=== PATIENT | female | born 1970 | race Two or more races ===

== ENCOUNTER → 2024-07-23 | Outpatient (CLI) | payer OTHER, SELFPAY ==
--- NOTE | 2024-07-23 16:18 | XR_ITS ---
Examination: Cervical spine 3 views TECHNIQUE: AP lateral, and AP odontoid cervical spine 3 views Exam date 9: July 23, 2024, 1728 hours Comparison February 09, 2016 INDICATIONS: Status post neck surgery 2 weeks ago. FINDINGS: Status post cervical fusion C4-C6 with anatomic alignment No cervical fracture Advanced degenerative disc disease C6-C7 level Postop prevertebral soft tissue prominence, 20 mm at the C5 level IMPRESSION: Cervical fusion C4-C6 with anatomic alignment
== END | disposition home or self-care (01) ==
PROVIDERS: Referring Provider Orthopaedic Surgery Orthopaedic Surgery of the Spine; Visit Provider Orthopaedic Surgery Orthopaedic Surgery of the Spine
DX: M43.22 Fusion of spine, cervical region (principal)
CPT/HCPCS: 72040

== ENCOUNTER → 2024-09-17 | Outpatient (CLI) | payer OTHER, SELFPAY ==
--- NOTE | 2024-09-17 13:15 | XR_ITS ---
Examination: Cervical spine 3 views Technique one AP lateral coned AP odontoid cervical spine 3 views Date and time: September 17, 2024 1432 hours Comparison July 23, 2024 INDICATIONS: Cervical fusion July 12, 2024 followed by numbness in both arms. FINDINGS: Cervical fusion C4-C6 with satisfactory alignment Moderate to advanced degenerative disc disease at the C6-C7 level with posterior osteophyte formation No fracture IMPRESSION: Moderate to advanced degenerative disc disease C6-C7
== END | disposition home or self-care (01) ==
PROVIDERS: PCP Orthopaedic Surgery Orthopaedic Surgery of the Spine; Referring Provider Orthopaedic Surgery Orthopaedic Surgery of the Spine; Visit Provider Orthopaedic Surgery Orthopaedic Surgery of the Spine
DX: M50.323 Other cervical disc degeneration at C6-C7 level (principal); M43.22 Fusion of spine, cervical region; Z47.89 Encounter for other orthopedic aftercare
CPT/HCPCS: 72040

== ENCOUNTER 2025-04-27 21:18 | Emergency (ER) | payer MEDICAID, SELFPAY ==
[2025-04-27 21:20] VITALS: BMI 29.8
[2025-04-27 21:46] VITALS: BP 191/111; BP 205/120; PULSE 108; RESP 18; TEMP 37.5; O2SAT 99
--- NOTE | 2025-04-27 21:57 | XR_ITS ---
EXAMINATION: PA chest single view TECHNIQUE: Upright PA chest single view Date and time: April 27, 2025, 2154 hours INDICATIONS: Coughing beginning 1 week ago. FINDINGS: Normal heart size Lungs are clear. Intact osseous structures IMPRESSION: No active disease
[2025-04-27 22:10] VITALS: BP 191/111; PULSE 108
[2025-04-27] MEDS: ALBUTEROL/IPRATROPIUM (Duoneb) RT SOL 3 ML NEBU INH (22:15)
[2025-04-27 22:16] VITALS: PULSE 84; RESP 20; O2SAT 99
[2025-04-27 22:23] LABS: Basophils # (Auto) 0.0 Thou/mm3 (0.0-0.2); Basophils % (Auto) 1 % (0-2.5); Eosinophils # (Auto) 0.1 Thou/mm3 (0.0-0.5); Eosinophils % (Auto) 2 % (0-10); Hematocrit 38.8 % (36.0-46.0); Hemoglobin 13.8 g/dL (12.0-16.0); Immature Granulocytes Auto 0.02 Thou/mm3 (0.00-0.00); Lymphocytes # (Auto) 2.4 Thou/mm3 (1.0-4.8); Mean Corpuscular HGB Conc 35.6 g/dl (31.0-37.0); Mean Corpuscular Hemoglobin 29.4 pg (25.0-35.0); Mean Corpuscular Volume 83 fL (80-100); Monocytes # (Auto) 0.5 Thou/mm3 (0.0-0.8); Monocytes % (Auto) 9 % (0-12); Neutrophils # (Auto) 2.7 Thou/mm3 (1.8-7.7); Neutrophils % (Auto) 47 % (37-80); Nucleated Red Blood Cell # 0.00 Thou/mm3 (0.00-0.00); Nucleated Red Blood Cell % 0 /100 WBC (0); Platelet Count 145 Thou/mm3 (140-440); RDW Standard Deviation 36.4 fL (36.4-46.3); Red Blood Count 4.70 Miln/mm3 (4.00-5.20); White Blood Count 5.7 Thou/mm3 (3.6-11.0)
[2025-04-27 22:41] LABS: Alanine Aminotransferase 26 U/L (10-49); Albumin, Serum 4.5 gm/dL (3.5-5.0); Albumin/Globulin Ratio 1.6 (1.2-2.2); Alkaline Phosphatase 100 U/L (46-116); Anion Gap 13 (7-16); Aspartate Amino Transferase 31 U/L (0-34); BUN/Creatinine Ratio 13 Ratio (12-20); Bilirubin,Total 0.5 mg/dL (0.3-1.2); Blood Urea Nitrogen 12 mg/dL (9-23); Calcium 9.6 mg/dL (8.3-10.6); Calcium (Corrected) 9.6 mg/dL (8.5-10.1); Carbon Dioxide 25.2 mMol/L (20.0-31.0); Chloride 105 mMol/L (98-107); Creatinine (Component) 0.9 mg/dL (0.6-1.3); Estimated Creatinine Clearance 73.5 mL/min (>60); Globulin 2.8 gm/dL (2.3-3.5); Glucose 127 mg/dL (74-106); Osmolality,Calculated 286 (275-295); Potassium 3.4 mMol/L (3.4-5.1); Sodium 143 mMol/L (136-145); Total Protein 7.3 gm/dL (5.7-8.2); Troponin I < 0.020 ng/mL (0.0-0.045); eGFR > 60 See Note
--- NOTE | 2025-04-27 22:47 | PD.EDADULT ---
ED General RME/HPI General Chief complaint: General Adult/Misc Complain Stated complaint: COUGHING, BLOOD PRESSURE HIGH Time Seen by Provider: 04/27/25 21:23 Source: patient Arrival date/time: 04/27/25 21:18 Mode of arrival: ambulatory Limitations: no limitations RME / HPI RME / HPI narrative: This patient is a pleasant but severely morbidly obese 54-year-old female who arrives to the ED today for evaluation of significant cough and chest tightness for the past 3 days. Patient states the symptoms came on and been relatively unrelenting. Additionally, patient's blood pressure was elevated at arrival with a reading of 191/111. Patient was afebrile. Patient denies any recent travel or new food sources. Related Data Home Medications ?Medication ?Instructions ?Recorded ?Confirmed escitalopram oxalate 20 mg tablet 20 mg PO QDAY 03/15/24 03/15/24 gabapentin 300 mg capsule 300 mg PO TID 03/15/24 03/15/24 naproxen 500 mg tablet 500 mg PO QDAY 03/15/24 03/15/24 nortriptyline 10 mg capsule 10 mg PO HS 03/15/24 03/15/24 ondansetron HCl 4 mg tablet 4 mg PO Q6H PRN Nausea And Vomiting 03/15/24 03/15/24 Previous Rx's ?Medication ?Instructions ?Recorded acetaminophen 500 mg tablet 500 mg PO Q4H PRN fever or pain 04/27/25 (Tylenol Extra Strength) #30 tabs albuterol sulfate 90 mcg/actuation 2 puff inhalation Q6H PRN 04/27/25 aerosol inhaler (Ventolin HFA) shortness of breath or wheezing #8.5 grams benzonatate 100 mg capsule 100 mg PO TID PRN cough #20 caps 04/27/25 oseltamivir 75 mg capsule (Tamiflu) 75 mg PO BID 5 days #10 caps 04/27/25 Allergies Allergy/AdvReac Type Severity Reaction Status Date / Time morphine Allergy Mild Rash Verified 04/27/25 21:19 Review of Systems Review of Systems Systems Reviewed: All systems reviewed, normal except as documented Past Medical History Past Medical History NEUROLOGIC: Positive Neurological Disorders and Head Trauma (CONCUSSION); Negative Seizures CARDIAC: Negative Cardiac Disorders or Congestive Heart Failure RESPIRATORY: Positive Asthma; Negative Chronic Obstructive Pulmonary Disease (COPD) GASTROINTESTINAL: Negative Gastrointestinal Disorders GENITOURINARY: Positive Genitourinary Disorders and Renal Disease (FATTY LIVER) MUSCULOSKELETAL: Positive Musculoskeletal Disorders and Arthritis ENT: Positive Head Trauma (CONCUSSION) ENDOCRINE: Positive Endocrine Disorders and Hypothyroidism; Negative Diabetes Mellitus Type 1 or Diabetes Mellitus Type 2 PSYCHO/SOCIAL: Positive Depression and Anxiety OTHER HISTORY: Positive Anesthesia Reactions (NAUSEA) and Chicken Pox; Negative Hospitalization, Autoimmune Disease, Down Syndrome, Developmental Delay, Falls, Blood Transfusions or Blood Transfusion Reaction Family History FAMILY HISTORY: Negative Family Psychiatric Problems, Family Respiratory Disorders, Family Cardiac Disorders, Family Gastrointestinal Problems, Family Surgery or Family Anesthesia Reaction Surgical History SURGICAL: Positive Open Reduction Internal Fixation (LEFT ANKLE), Hysterectomy and Section (X3) Social History SMOKING STATUS: Never smoker ED Exam General Limitations: Present no limitations General appearance: Present alert and in distress (Patient appears moderately ill and is coughing excessively at time of evaluation.) Head Head exam: Present atraumatic Eye Eye exam: Present normal appearance, PERRL and EOMI ENT ENT exam: Present normal exam, normal oropharynx and mucous membranes moist Neck Neck exam: Present normal inspection, full ROM and trachea midline Chest Chest inspection: Present normal inspection and symmetric chest wall rise Respiratory Respiratory exam: Present normal lung sounds bilaterally Cardiovascular Cardiovascular exam: Present regular rate, normal rhythm and normal heart sounds Abdominal Exam Abdominal exam: Present soft and normal bowel sounds Extremities Exam Extremities exam: Present normal inspection and full ROM Back Exam Back exam: Present normal inspection and full ROM Neurological Exam Neurological exam: Present alert, oriented X3 and CN II-XII intact Psychiatric Psychiatric exam: Present normal affect and normal mood Skin Skin exam: Present warm, dry, intact and normal color Course Quality Measures none Orders Category Date Time Status Bedside COVID-19 Antigen Test NOW Care 04/27/25 21:56 Active Bedside Influenza A&B Antigen Test NOW Care 04/27/25 21:56 Completed XR chest 1V portable Stat Exams 04/27/25 21:57 Taken CBC Stat Lab 04/27/25 22:10 Completed CMP [Comprehensive Metabolic Panel] Stat Lab 04/27/25 22:10 Completed Troponin I Stat Lab 04/27/25 22:10 Completed Albuterol/Ipratr Rt Ana [Duoneb Rt Ana] Med 04/27/25 21:56 Discontinued 3 ml INH X1 ONE cloNIDine HCL [Catapres] Med 04/27/25 21:56 Discontinued 0.2 mg PO X1 ONE dexAMETHasone INJ [Decadron Inj] Med 04/27/25 21:56 Discontinued 10 mg IM X1 ONE As noted above Vital Signs Vital signs: Vital Signs Temperature 99.5 F 04/27/25 21:46 Pulse Rate 108 H 04/27/25 21:46 Respiratory Rate 18 04/27/25 21:46 Blood Pressure 191/111 H 04/27/25 21:46 Pulse Oximetry (%) 99 04/27/25 21:46 Oxygen Delivery Method Room Air 04/27/25 21:46 As noted above Discharge Plan Plan Patient Disposition: HOME (Self Care) Prescriptions/Referrals Prescriptions/Med Rec: New albuterol sulfate [Ventolin HFA] 90 mcg/actuation HFA aerosol inhaler 2 puff inhalation Q6H PRN (Reason: shortness of breath or wheezing) Qty: 8.5 0RF acetaminophen [Tylenol Extra Strength] 500 mg tablet 500 mg PO Q4H PRN (Reason: fever or pain) Qty: 30 0RF benzonatate 100 mg capsule 100 mg PO TID PRN (Reason: cough) Qty: 20 0RF oseltamivir [Tamiflu] 75 mg capsule 75 mg PO BID 5 Days Qty: 10 0RF No Action ondansetron HCl 4 mg tablet 4 mg PO Q6H PRN (Reason: Nausea And Vomiting) Patient Comments: TAKE 1 TABLET BY MOUTH EVERY 6 HOURS NEEDED FOR NAUSEA OR VOMITING. nortriptyline 10 mg capsule 10 mg PO HS Patient Comments: TAKE 1 CAPSULE BY MOUTH EVERY DAY BEFORE BEDTIME FOR 30 DAYS gabapentin 300 mg capsule 300 mg PO TID Patient Comments: TAKE 1 CAPSULE BY MOUTH 3 TIMES A DAY FOR 30 DAYS naproxen 500 mg tablet 500 mg PO QDAY Patient Comments: TAKE 1 TABLET BY MOUTH EVERY 12 HOURS WITH FOOD OR MILK NEEDED FOR 30 DAYS escitalopram oxalate 20 mg tablet 20 mg PO QDAY Patient Comments: TAKE 1 TABLET BY MOUTH EVERY DAY FOR 30 DAYS Referrals: Ankit Cummins MD [Primary Care Provider, Family Practice] - In 1 week Problem List Clinical Impression: Influenza Patient/Caregiver Discharge Instructions Education Materials: The Flu (Influenza) Additional Instructions: Advise utilizing medication as directed as well as addition medication as needed. Patient should practice good hydration and healthy nutrition throughout. Print Language: Swedish Stand Alone Forms: Shanelle Award Info., Patient Portal Info Letter MDM Narrative MDM hospital course (for use when minimal MDM required): All studies performed in the ED were evaluated by me personally. Chest x-ray was unremarkable for any acute consolidation or intrapulmonary concerns. Swabs confirmed an influenza A diagnosis. Patient received a breathing treatment while she was here as well as clonidine to address her blood pressure issues. Patient be sent home with a supplemental medication including emergent blood pressure medication to be used as needed. Patient should follow-up with spine care provider for discussions related to what is currently poorly controlled hypertension. Clinical Information Provided by: patient Medical Records reviewed None Meds/Rx considered, not ordered None Labs/Rad/Tests considered, not ordered None Chronic Illness/Social Conditions which may negatively complicate care or outcome(s)-explain: None or not applicable Explain: Hypertension EKG EKG not done Labs Labs: interpreted by me Lab(s) Interpretation(s): Influenza A Imaging Imaging interpretation: interpreted by me Imaging Interpretation(s): Unremarkable Medication Administration(s) Medication Administration History Discontinued Medications Albuterol/Ipratropium (Albuterol/Ipratropium (Duoneb) Rt Ana 3 Ml Nebu) 3 ml INH X1 ONE Stop: 04/27/25 21:57 Last Admin: 04/27/25 22:15 Dose: 3 ml Documented By: [email or web address] Clonidine (Clonidine Hcl 0.1 Mg Tablet) 0.2 mg PO X1 ONE Stop: 04/27/25 21:57 Last Admin: 04/27/25 22:10 Dose: 0.2 mg Documented By: OA Dexamethasone Sodium Phosphate (Dexamethasone Sod Phos Inj 10 Mg/Ml Vial) 10 mg IM X1 ONE Stop: 04/27/25 21:57 Last Admin: 04/27/25 22:10 Dose: 10 mg Documented By: STEPHANIE As noted above Diagnosis Differential Diagnosis ED Complaint MDM: Influenza, asthma exacerbation, hypertensive urgency, pneumonia, viral uppe Diagnoses ruled out and/or further discussions: Influenza A
[2025-04-27 22:55] VITALS: BP 162/100; BP 174/103; PULSE 88; RESP 20; O2SAT 98
[2025-04-27 23:05] VITALS: BP 162/100; PULSE 88
[2025-04-27 23:36] VITALS: BP 152/97
[2025-04-28 01:02] LABS: Lymphocytes % (Auto) 42 % (10-50)
[2025-04-28 02:01] LABS: Path Review Blood Smear Sent to Pathologist
== END 2025-04-27 23:39 | disposition home or self-care (01) ==
PROVIDERS: Emergency Provider Physician Assistant; PCP Family Medicine
DX: J10.1 Influenza due to other identified influenza virus with other respiratory manifestations (principal)
CPT/HCPCS: 36415; 71045; 80053; 84484; 85025; 87502; 87635; 94640; 96372; 99284; A9270; J1100